=== PATIENT | male | born 1995 ===

== ENCOUNTER → 2024-03-28 | Outpatient (REF) | payer OTHER ==
[2024-03-28 11:52] LABS: SEMEN APPEARANCE OPAQUE (OPAQUE); SEMEN VISCOSITY LIQUID (LIQUID); SEMEN VOLUME 5.8 ml (2.0-5.0); SEMEN pH 8.5 (7.0-8.0); WBC CONCENTRATION >1 M/ml (<=1 M/ml)
== END ==
LOC: M LAB REF 11:24
PROVIDERS: ATTEND Physician Assistant
DX: Z30.8 Encounter for other contraceptive management (principal)